=== PATIENT | female | born 1960 | race Caucasian/White ===

== ENCOUNTER → 2017-01-01 | Outpatient (CLI) | payer OTHER ==
--- NOTE | 2017-01-01 16:28 | REPMRS ---
Patient History The patient states she had a clinical breast exam in 12/2016. Patient is postmenopausal. Family history of premenopausal breast cancer in maternal aunt at age 50 or over, breast cancer in 2 maternal cousins, colorectal cancer in maternal cousin at age 50 or over, and colorectal cancer in maternal uncle at age 50 or over. Reductions of both breasts, September 2015. Took hormonal contraceptives for 32 years. Digital Woman Screen Mammo: January 01, 2017 - Exam #: [id number] Bilateral CC and MLO view(s) were taken. Technologist: Kathleen Marie, Technologist Prior study comparison: August 02, 2015, digital woman screen mammo performed at [facility]. April 24, 2014, right breast digital mammo diagnostic unilateral, performed at [facility]. FINDINGS: The breast tissue is almost entirely fat. There has been no change in the appearance of the mammogram from the prior studies. A few scattered fibroglandular elements are again seen as on the prior studies within the fatty breast parenchyma. There is no interval development of dominant mass, areas of architectural distortion, or clustered microcalcification typical of malignancy. Scattered lymph nodes are seen in the axillae. There are scattered, small, benign calcifications of doubtful clinical significance. No significant changes when compared with prior studies. ASSESSMENT: BI-RADS/ACR category 2 mammogram. Benign finding(s). Recommendation Routine screening mammogram in 1 year. A. Negative x-ray reports should not delay biopsy if a dominant or clinically suspicious mass is present. B. Four to eight percent of cancers are not identified by mammography. C. Adenosis and dense breast may obscure an underlying neoplasm.(for women over age 40). This mammogram was interpreted with the aid of an FDA-approved computer-aided dectection system. Electronically Signed By: Scotty Solis MD 01/01/17 0771
== END ==
LOC: M WHC 15:10
PROVIDERS: ATTEND Nurse Practitioner Family
DX: Z12.31 Encounter for screening mammogram for malignant neoplasm of breast (principal)

== ENCOUNTER → 2017-01-01 | Outpatient (REF) | payer OTHER | LOC: M SFHCWAGY 15:14 | PROVIDERS: ATTEND Nurse Practitioner Family | DX: Z12.4 Encounter for screening for malignant neoplasm of cervix (principal) ==

== ENCOUNTER → 2019-01-08 | Outpatient (CLI) | payer OTHER ==
[~2019-01-08] MED LIST: IBUP-1022 PO; IBUP100S5 PO; MUCI600T31 PO; MULT1TAB10 PO; PROP120C PO; SIMV20TA2 PO; ZOLM5TAB PO
[2019-01-08 14:59] LABS: BASO % 0.3 % (0.0-1.0); EOS # 0.2 10^3/uL (0.0-0.50); EOS % 2.3 % (0.0-3.0); HEMATOCRIT 41.2 % (36.0-47.0); HEMOGLOBIN 13.1 g/dl (12.0-15.5); LYMPH # 3.6 10^3/uL (1.5-4.5); LYMPH % 48.6 % (24.0-44.0); MEAN CORPUSCULAR HEMOGLOBIN 26.1 pg (27.0-33.0); MEAN CORPUSCULAR HGB CONC 31.8 g/dl (32.0-36.5); MEAN CORPUSCULAR VOLUME 82.1 fl (80.0-96.0); MONO # 0.6 10^3/uL (0.0-0.8); MONO % 8.3 % (0.0-5.0); NEUTROPHILS % 40.4 % (36.0-66.0); PLATELET COUNT, AUTOMATED 288 10^3/uL (150-450); RED BLOOD COUNT 5.02 10^6/uL (4.00-5.40); WHITE BLOOD COUNT 7.4 10^3/uL (4.0-10.0)
[2019-01-08 15:11] LABS: ALBUMIN 3.9 GM/DL (3.2-5.2); ALT/SGPT 29 U/L (12-78); BILIRUBIN,TOTAL 0.5 MG/DL (0.2-1.0); BLOOD UREA NITROGEN 16 MG/DL (7-18); CALCIUM LEVEL 8.9 MG/DL (8.5-10.1); CARBON DIOXIDE LEVEL 28 MEQ/L (21-32); CHLORIDE LEVEL 105 MEQ/L (98-107); CREATININE FOR GFR 0.77 MG/DL (0.55-1.30); GLOMERULAR FILTRATION RATE > 60.0 (>51); GLUCOSE, FASTING 94 MG/DL (70-100); POTASSIUM SERUM 4.3 MEQ/L (3.5-5.1); SODIUM LEVEL 140 MEQ/L (136-145); TOTAL PROTEIN 7.5 GM/DL (6.4-8.2)
--- NOTE | 2019-01-09 21:31 | ECGEPIP ---
Stationary ECG Study [facility] Test Date: 2019-01-08 Pat Name: CHRISTIANE WOOD Department: Room: - Gender: F Frame Hand: RF : 1960 Requested By: Moe Betts Order Number: [id number] Reading MD: Reid Gordon Measurements Intervals [place] Rate: 56 P: 45 NV: 156 QRS: 3 QRSD: 88 T: 8 QT: 369 QTc: 357 Interpretive Statements SINUS BRADYCARDIA LOW QRS VOLTAGE IN PRECORDIAL LEADS NO PRIOR TRACING Electronically Signed On 01-09-2019 21:31:10 EST by Reid Gordon
== END ==
LOC: M LAB 14:09
PROVIDERS: ATTEND Podiatrist
DX: M20.12 Hallux valgus (acquired), left foot (principal); M79.672 Pain in left foot

== ENCOUNTER 2019-01-14 10:35 | Day surgery (SDC) | payer OTHER ==
[~2019-01-14] VITALS: Ht 160 cm; Wt 93.8 kg
[~2019-01-14 10:35] MED LIST changes: +LR 1,000 ML IV ONE
[2019-01-14] MEDS ORDERED: MIDAZOLAM INJ 2 MG/2 ML VIAL (J2250) As Ordered ONE (12:06)
[2019-01-14] MEDS ORDERED: KETOROLAC 60 MG/2 ML VIAL (J1885) As Ordered ONE (12:06)
[2019-01-14] MEDS ORDERED: ONDANSETRON 4MG/2ML VIAL (J2405) As Ordered ONE (12:06)
[2019-01-14] MEDS ORDERED: LIDOCAINE 2% INJ 100 MG/5 ML SDV (FOR ANES.) As Ordered ONE ×2 (12:06→13:55)
[2019-01-14] MEDS ORDERED: PROPOFOL 200 MG/20 ML VIAL As Ordered ONE ×2 (12:06→13:55)
[2019-01-14] MEDS ORDERED: fentaNYL 100 MCG/2 ML INJECTION (J3010) As Ordered ONE (12:07)
[2019-01-14] MEDS ORDERED: LIDOCAINE 2% MDV 20 ML VIAL As Ordered ONE (14:01)
[2019-01-14] MEDS ORDERED: BUPIVACAINE HCL 0.5% 30 ML VIAL As Ordered ONE (14:01)
[2019-01-14] MEDS ORDERED: BACITRACIN PWD 50,000 UNITS VIAL As Ordered ONE (14:01)
[2019-01-14] MEDS ORDERED: NEOSPORIN GU IRRIG 20 ML VIAL As Ordered ONE (14:01)
[2019-01-14] MEDS ORDERED: dexameTHASONE 4 MG/ML 1ML VIAL (J1100) As Ordered ONE ×2 (14:19→14:44)
[2019-01-14 15:18] VITALS: BP 99/66
--- NOTE | 2019-01-14 15:56 | REP ---
LEFT FOOT, FOUR VIEWS, PORTABLE: Four portable views of the left foot are performed. Patient has had surgery in the distal first metatarsal with metallic screw at that location. Structures are well aligned. There is mild inferior calcaneal spurring. There is moderate to moderately severe narrowing of the first metatarsal phalangeal joint. Electronically Signed by Donell Diaz MD 01/17/2019 12:00 P
--- NOTE | 2019-01-15 10:23 | RO ---
DATE OF PROCEDURE: 01/14/2019 PREPROCEDURE DIAGNOSES: Hallux valgus with hallux limitus deformity left foot. POSTPROCEDURE DIAGNOSES: Hallux valgus with hallux limitus deformity left foot. PROCEDURE: 1. Cheilectomy first metatarsal phalangeal joint left foot. 2. Distal V osteotomy and internal screw fixation left foot. SURGEON: Moe Betts DPM [employer] COUNSELOR: None. ANESTHESIA: Local MAC. HEMOSTASIS: Ankle pneumatic tourniquet at 250 mmHg for 29 minutes left ankle. HARDWARE UTILIZED: Arthrex headless 3.0 x 18 mm cannulated compression screw. DESCRIPTION OF OPERATION: On 01/14/2019, this 59-year-old white female was taken from her hospital room to the operating room and placed on the operating room table in the supine position. Following the induction of IV sedation and local and regional anesthesia, the left lower extremity was prepped and draped in the usual aseptic manner. The ankle pneumatic tourniquet was rapidly inflated to 250 mmHg. Sterile draping was completed and the following procedure was performed: CHEILECTOMY FIRST METATARSAL PHALANGEAL JOINT LEFT FOOT: Attention was directed to the patient's left foot where a 5 cm incision was placed over the first metatarsal phalangeal joint. The incision was deepened through subcutaneous tissues and all coursing venous tributaries were identified, underscored, clamped, cut, ligated and electrocoagulated as necessary. A linear capsulotomy was then performed in the same plane as the original skin incision. The capsular and periosteal structures were then dissected dorsally, medially and laterally thus creating a periosteal type envelope. This delivered into view the hypertrophied medial eminence of the first metatarsal as well as spurring noted on the dorsal aspect of the first dorsal metatarsal. There was a joint mouse noted on the dorsal surface of the first metatarsal as well as spurring on the proximal phalanx. Utilizing a sagittal saw, an osteotomy was performed through the hypertrophied medial eminence from distal to proximal through and through exiting medial to the sesamoid groove. Utilizing a sagittal saw, an osteotomy was performed through the spurring on the dorsal aspect of the first metatarsal and the dorsal 20% of the spur on the proximal phalanx was similarly osteotomized and removed. The cartilage on the proximal phalanx was noted to be entirely intact, however, there was an area on the first metatarsal on the dorsal lateral corner measuring 3 mm x 3 mm articular cartilage loss which was microfractured with a 0.45 K wire. The wound was flushed with copious amounts of dilute bacitracin, neomycin and polymyxin B solution. After the chielectomy, there was still noted to be an increase in the IM angle of the first metatarsal, therefore the following procedure was performed: FIRST METATARSAL OSTEOTOMY WITH INTERNAL SCREW FIXATION LEFT FOOT: Attention was directed to the distal metaphysis of the first metatarsal where a V shaped osteotomy was performed in the distal metaphysis of the first metatarsal with a long plantar and short dorsal wing. The capital fragment was transposed approximately 20-30% of the width of the shaft of the first metatarsal and fixated with a 3.0 x 18 mm headless compression screw. The osteotomy was noted to be stable in all three cardinal planes. Redundant cortical spike was osteotomized from dorsal to plantar through and through. The wound was flushed. Attention was directed toward closure where the capsular structures were coapted and maintained utilizing #2-0 Monocryl in a simple interrupted type fashion. Subcutaneous tissues were coapted and maintained using #4-0 Monocryl in a simple interrupted type fashion. Skin incision was coapted and maintained utilizing #5-0 Monocryl in a continuous subcuticular type fashion. This was additionally reinforced with Steri-Strips. Following the completion of the surgical procedure, 4 mg of dexamethasone sodium phosphate was instilled proximal to the surgical site. Attention was directed toward bandaging where a sterile compressive bandage was applied consisting of Adaptic, 4x4s, 4x4 splints, Magda, Kerlix and Coban. The ankle pneumatic tourniquet was then rapidly deflated and instantaneous capillary filling time was noted to digits of 1 through 5 of the patient's left foot. The patient having apparently tolerated the surgical procedure well was taken from the operating room (OR) to the recovery room for further monitoring by the anesthesia department. Postoperative instructions will be given upon discharge.
== END 2019-01-14 16:35 | disposition home or self-care (01) ==
LOC: M SDC 10:35
PROVIDERS: ATTEND Podiatrist
DX: M20.12 Hallux valgus (acquired), left foot (principal); M84.872 Other disorders of continuity of bone, left ankle and foot; M25.775 Osteophyte, left foot; E78.5 Hyperlipidemia, unspecified; Z79.899 Other long term (current) drug therapy; G43.909 Migraine, unspecified, not intractable, without status migrainosus
CPT/HCPCS: 28289; 28296; 73630; 88300; 97116; C1713; J0690; J1100; J1885; J2250; J2405; J3010

== ENCOUNTER 2022-02-27 08:57 | Day surgery (SDC) | payer OTHER ==
[~2022-02-27] VITALS: Ht 160 cm; Wt 79.4 kg
[~2022-02-27 08:57] MED LIST changes: +CITRTAB19 PO; +IBUP-1114 PO; -IBUP100S5 PO; +IBUP100S65 PO; -LR 1,000 ML IV ONE; +NS 1,000 ML IV ONE; +OSTE5TAB PO; -SIMV20TA2 PO; +SIMV20TA22 PO; -ZOLM5TAB PO; +ZOLM5TAB20 PO
[2022-02-27] MEDS ORDERED: LIDOCAINE 2% 100MG/5ML SDV (FOR ANES.) As Ordered ONE (09:03)
[2022-02-27] MEDS ORDERED: propofoL 200 MG/20 ML VIAL As Ordered ONE (09:03)
[2022-02-27] MEDS ORDERED: fentaNYL 100 MCG/2 ML INJECTION As Ordered ONE (10:26)
[2022-02-27 11:01] VITALS: BP 117/64
== END 2022-02-27 11:02 | disposition home or self-care (01) ==
LOC: M OPP 08:57
PROVIDERS: ATTEND Surgery
DX: R19.5 Other fecal abnormalities (principal); K63.5 Polyp of colon; K57.30 Diverticulosis of large intestine without perforation or abscess without bleeding; Z79.899 Other long term (current) drug therapy; G47.30 Sleep apnea, unspecified
CPT/HCPCS: 45385; 88305; J3010

== ENCOUNTER → 2022-07-27 | Outpatient (CLI) | payer OTHER ==
[~2022-07-27] MED LIST changes: -NS 1,000 ML IV ONE
== END ==
LOC: M LABSMTC 10:47
PROVIDERS: ATTEND Surgery
DX: Z01.818 Encounter for other preprocedural examination (principal); Z11.52 Encounter for screening for COVID-19

== ENCOUNTER 2022-07-31 10:01 | Day surgery (SDC) | payer OTHER ==
[~2022-07-31] VITALS: Ht 160 cm; Wt 82.9 kg
[~2022-07-31 10:01] MED LIST changes: +NS 1,000 ML IV ONE
[2022-07-31] MEDS ORDERED: LIDOCAINE 2% 100MG/5ML SDV (FOR ANES.) As Ordered ONE (11:08)
[2022-07-31] MEDS ORDERED: propofoL 200 MG/20 ML VIAL As Ordered ONE (11:08)
[2022-07-31 11:47] VITALS: BP 117/69
== END 2022-07-31 11:54 | disposition home or self-care (01) ==
LOC: M OPP 10:01
PROVIDERS: ATTEND Surgery
DX: Z86.010 Personal history of colon polyps (principal); K57.30 Diverticulosis of large intestine without perforation or abscess without bleeding; Z79.02 Long term (current) use of antithrombotics/antiplatelets; Z79.1 Long term (current) use of non-steroidal anti-inflammatories (NSAID); Z79.899 Other long term (current) drug therapy; G43.909 Migraine, unspecified, not intractable, without status migrainosus; E78.00 Pure hypercholesterolemia, unspecified

== ENCOUNTER → 2023-05-25 | Outpatient (REF) | payer OTHER ==
[~2023-05-25] MED LIST changes: -NS 1,000 ML IV ONE
== END ==
LOC: M SFHCWAGY 10:23
PROVIDERS: ATTEND Nurse Practitioner Family
DX: Z12.4 Encounter for screening for malignant neoplasm of cervix (principal)
CPT/HCPCS: 87624; G0123